=== PATIENT | male | born 1970 | race Caucasian/White ===

== ENCOUNTER 2017-09-23 15:18 | Day surgery (SDC) | payer OTHER ==
[~2017-09-23] VITALS: Ht 188 cm; Wt 70.4 kg
[2017-09-23 16:02] VITALS: BP 106/72
[2017-09-23] MEDS ORDERED: LACTATED RINGERS 1,000 ML IV SCH (16:04)
[2017-09-23] MEDS ORDERED: ADVIL PO (16:16)
[2017-09-23] MEDS ORDERED: BUPIVACAINE/PF 0.25% ONE (16:32)
[2017-09-23] MEDS ORDERED: MIDAZOLAM 1 MG/ML, 2ML ONE (17:02)
[2017-09-23] MEDS ORDERED: FENTANYL PF 100 MCG/2ML ONE (17:02)
[2017-09-23] MEDS ORDERED: DEXAMETHASONE 4 MG/ML, 1ML ONE (17:24)
[2017-09-23] MEDS ORDERED: MIDAZOLAM 1 MG/ML, 5ML ONE (17:24)
[2017-09-23] MEDS ORDERED: ONDANSETRON 2MG/ML, 2ML ONE (17:24)
[2017-09-23] MEDS ORDERED: CEFAZOLIN 1,000 MG ONE (17:24)
[2017-09-23] MEDS ORDERED: PROMETHAZINE 25 MG/ML, 1ML IV PRN (18:00)
[2017-09-23] MEDS ORDERED: ACETAMINOPHEN 325 MG TABLET PO PRN (18:00)
[2017-09-23] MEDS ORDERED: MEPERIDINE/PF 25MG/0.5ML IVPush PRN (18:00)
[2017-09-23] MEDS ORDERED: FENTANYL PF 100 MCG/2ML IV PRN (18:00)
[2017-09-23] MEDS ORDERED: KETOROLAC 30 MG/1 ML IV PRN (18:00)
[2017-09-23] MEDS ORDERED: DIAZEPAM 5 MG/ML, 2ML IVPush PRN (18:00)
[2017-09-23] MEDS ORDERED: MEPERIDINE/PF 50 MG/ML ONE (18:30)
== END 2017-09-23 21:15 | disposition home or self-care (01) ==
LOC: OR 15:18 → 4NOR 19:34 → OR 21:15
PROVIDERS: ATTEND Orthopaedic Surgery
DX: S42.022A Displaced fracture of shaft of left clavicle, initial encounter for closed fracture (principal); W17.89XA Other fall from one level to another, initial encounter; Y93.89 Activity, other specified; Y92.89 Other specified places as the place of occurrence of the external cause; Y99.8 Other external cause status; Z79.899 Other long term (current) drug therapy
CPT/HCPCS: 23515; 73000; 76000; C1713; J0690; J1100; J2175; J2250; J2405; J3010; J3490; J7120